=== PATIENT | female | born 1990 | race Two or more races ===

== ENCOUNTER 2018-11-05 21:20 | Emergency (ER) | payer SELFPAY ==
[~2018-11-05] VITALS: Ht 157.5 cm; Wt 72.6 kg
[2018-11-05] MEDS ORDERED: IV NORMAL SALINE 1000ML BAG 1,000 ML IV ONE (22:30)
[2018-11-05] MEDS ORDERED: ONDANSETRON PF 4 MG/2 ML VIAL. IV ONE (22:30)
--- NOTE | 2018-11-05 23:29 | PHYS DOC ---
Past Medical History Past Medical History: No Pertinent History Past Surgical History: No Surgical History Alcohol Use: None Drug Use: Marijuana Adult General Chief Complaint Chief Complaint: SUICDAL IDEATION HPI HPI 28-year-old female presents to ER with complaints of nausea and vomiting and reports she is probably as she hasn't had a period since August. She reports she has had N/V intermittently, decreased urination, and intermittent SANTANA. She denies fever, diarrhea, vaginal bleeding/discharge, or abd pain. She reports LMP 09/22/18. She reports this preg. would make her with her children ages 9 and 11 08/28. She reports she took tylenol for her SANTANA- denies vision changes, dizziness, tinnitus, or photosensitivity. During initial exam patient is tearful and stated in the past couple of weeks due to increased anxiety related to her situation and being from her she has had suicidal ideations and thoughts of taking a "handful of pills". Patient is currently denying active plan stating she would not carry through with this plan however with further discussion she is agr eeable with PAT evaluation while in the ER. Pt denies previous SI/attempts. She denies alcohol intake. She reports she smoked marijuana 2 days ago- denies other illicit drugs. Review of Systems Review of Systems Constitutional: Denies fever or chills [] Eyes: Denies change in visual acuity, redness, or eye pain [] HENT: Denies nasal congestion or sore throat [] Respiratory: Denies cough or shortness of breath [] Cardiovascular: No additional information not addressed in HPI [] GI: Denies abdominal pain, bloody stools or diarrhea. Reports intermittent N/V : Denies dysuria or hematuria. Denies vaginal bleeding/discharge/pelvis pain Musculoskeletal: Denies back pain or joint pain [] Integument: Denies rash or skin lesions [] Neurologic: Denies focal weakness or sensory changes. Reports intermittent SANTANA- denies dizziness Endocrine: Denies polyuria or polydipsia [] Psych: Reports increased anxiety/stress- SI without active plan and denies she would carry thru with attempts All other systems were reviewed and found to be within normal limits, except as documented in this note. Current Medications Current Medications Current Medications Medications (Trade) Dose Ordered Sig/Marcia Start Time Stop Time Status Last Admin Dose Admin Ondansetron HCl (Zofran) 4 mg 1X ONCE 11/05/18 22:30 11/05/18 22:31 DC 11/05/18 23:32 4 MG Potassium Chloride (Klor-Con) 40 meq 1X ONCE 11/06/18 00:30 11/06/18 00:33 DC 11/06/18 00:45 40 MEQ Sodium Chloride 1,000 ml @ 1,000 mls/hr 1X ONCE 11/05/18 22:30 11/05/18 23:29 DC 11/05/18 23:30 1,000 MLS/HR Allergies Allergies Allergies Coded Allergies Type Severity Reaction Last Updated Verified No Known Drug Allergies 11/05/18 No Physical Exam Physical Exam Constitutional: Well developed, well nourished, no acute distress, non-toxic appearance. [] HENT: Normocephalic, atraumatic, mucous membranes pink/dry, no oral exudates, nose normal. [] Eyes: PERRLA, no nystagmus, conjunctiva normal, no discharge. [] Neck: Normal range of motion, no tenderness, supple, no stridor. [] Cardiovascular: Heart rate regular rhythm, no murmur [] Lungs & Thorax: Bilateral breath sounds clear to auscultation [] Abdomen: Bowel sounds normal, soft- no distention/rigidity, no tenderness Skin: Warm, dry, no erythema, no rash. [] Back: No tenderness, no CVA tenderness. [] Extremities: No tenderness, no cyanosis, no clubbing, ROM intact, no edema. [] Neurologic: Alert and oriented X 3, normal motor function, normal sensory function, no focal deficits noted. [] Psychologic: Affect normal, judgement normal, tearful during exam- no agitation/restlessness. Cooperative during exam. No uncontrollable behavior Current Patient Data Vital Signs Lab Values Laboratory Tests Test 11/05/18 21:48 11/05/18 23:59 POC Urine HCG, Qualitative Hcg positive (Negative) White Blood Count 12.5 x10^3/uL (4.0-11.0) H Red Blood Count 4.54 x10^6/uL (3.50-5.40) Hemoglobin 13.2 g/dL (12.0-15.5) Hematocrit 40.1 % (36.0-47.0) Mean Corpuscular Volume 88 fL (79-100) Mean Corpuscular Hemoglobin 29 pg (25-35) Mean Corpuscular Hemoglobin Concent 33 g/dL (31-37) Red Cell Distribution Width 14.4 % (11.5-14.5) Platelet Count 178 x10^3/uL (140-400) Neutrophils (%) (Auto) 74 % (31-73) H Lymphocytes (%) (Auto) 18 % (24-48) L Monocytes (%) (Auto) 7 % (0-9) Eosinophils (%) (Auto) 0 % (0-3) Basophils (%) (Auto) 0 % (0-3) Neutrophils # (Auto) 9.3 x10^3uL (1.8-7.7) H Lymphocytes # (Auto) 2.3 x10^3/uL (1.0-4.8) Monocytes # (Auto) 0.9 x10^3/uL (0.0-1.1) Eosinophils # (Auto) 0.0 x10^3/uL (0.0-0.7) Basophils # (Auto) 0.0 x10^3/uL (0.0-0.2) Maternal Serum HCG Beta Subunit 72321 mIU/mL (0-5) H Sodium Level 141 mmol/L (136-145) Potassium Level 3.2 mmol/L (3.5-5.1) L Chloride Level 102 mmol/L (98-107) Carbon Dioxide Level 25 mmol/L (21-32) Anion Gap 14 (6-14) Blood Urea Nitrogen 13 mg/dL (7-20) Creatinine 0.6 mg/dL (0.6-1.0) Estimated GFR (Cockcroft-Gault) 119.9 BUN/Creatinine Ratio 22 (6-20) H Glucose Level 80 mg/dL (70-99) Calcium Level 8.9 mg/dL (8.5-10.1) Total Bilirubin 0.6 mg/dL (0.2-1.0) Aspartate Amino Transferase (AST) 26 U/L (15-37) Alanine Aminotransferase (ALT) 36 U/L (14-59) Alkaline Phosphatase 56 U/L (46-116) Total Protein 8.0 g/dL (6.4-8.2) Albumin 3.5 g/dL (3.4-5.0) Albumin/Globulin Ratio 0.8 (1.0-1.7) L Lipase 148 U/L (73-393) Laboratory Tests 11/05/18 23:59 Laboratory Tests 11/05/18 23:59 EKG EKG [] Radiology/Procedures Radiology/Procedures [] Course & Med Decision Making Course & Med Decision Making Pertinent Labs reviewed. (See chart for details) 2225: Spoke with Jeff stephens/[facility] team and he will come to assess pt. 1245: On reevaluation following IV fluids/txs received and PAT evaluation patient is non-tearful and reports she is feeling better after discussion with [facility] team staff. Test results were discussed with patient with potassium at 3.2 so 40 mEq potassium is being provided while in the ER. Pt was +preg. with HCG quant [id number]. Discussed need for [employer] f/u. Indepth conversation was had with pt regarding /her living situation and if she had increased anxiety/SI that she should seek immediate help or return to ER. Pt reports she is feeling better after this ER visit and talking with Jeff as he provided her with resources. Discussed plans for home discharge as patient is feeling better. Pt is denying any suicidal ideations stating she does plan to follow-up with resources provided as well as [facility]. She again stated she could never carry thru with SI/attempt for her children's well being. Advised patient on signs and symptoms to return to ER for. Education provided on s&s to return to ER for and pt is comfortable with home d/c plan. Will provide community clinic/physician resource sheet with d/c paperwork. Nick Disclaimer Nick Disclaimer This electronic medical record was generated, in whole or in part, using a voice recognition dictation system. Departure Departure Impression: Primary Impression: Additional Impressions: Anxiety during Suicidal ideation Nausea and vomiting during Hypokalemia Disposition: 01 HOME, SELF-CARE Condition: STABLE Referrals: NO PCP (PCP) Patient Instructions: ABCs of , Anxiety and Panic Attacks, Hypokalemia, Nausea and Vomiting, Suicidal Feelings, How to Help Yourself Additional Instructions: Increase fluid intake and eat well balanced meals. As discussed follow-up with the resources for [facility] and counselors to discuss your anxiety and situation. Return to the Emergency Department or seek immediate help with any thoughts of harming yourself or with any concerns. Problem Qualifiers MARTIN RODRIGUEZ APRN Nov 05, 2018 23:29
[2018-11-06 00:07] LABS: BASO % 0 % (0-3); EOS % 0 % (0-3); HEMATOCRIT 40.1 % (36.0-47.0); HEMOGLOBIN 13.2 g/dL (12.0-15.5); LYMPH # 2.3 x10^3/uL (1.0-4.8); LYMPH % 18 % (24-48); MEAN CORPUSCULAR HEMOGLOBIN 29 pg (25-35); MEAN CORPUSCULAR HGB CONC 33 g/dL (31-37); MEAN CORPUSCULAR VOLUME 88 fL (79-100); MONO # 0.9 x10^3/uL (0.0-1.1); MONO % 7 % (0-9); NEUT # 9.3 x10^3uL (1.8-7.7); NEUT % 74 % (31-73); PLATELET COUNT 178 x10^3/uL (140-400); RED BLOOD COUNT 4.54 x10^6/uL (3.50-5.40); RED CELL DISTRIBUTION WIDTH 14.4 % (11.5-14.5); WHITE BLOOD COUNT 12.5 x10^3/uL (4.0-11.0)
[2018-11-06 00:18] LABS: CALCIUM 8.9 mg/dL (8.5-10.1); CREATININE 0.6 mg/dL (0.6-1.0); GFR 119.9; POTASSIUM 3.2 mmol/L (3.5-5.1)
[2018-11-06 00:22] LABS: ALBUMIN 3.5 g/dL (3.4-5.0); ALBUMIN/GLOBULIN RATIO 0.8 (1.0-1.7); TOTAL BILIRUBIN 0.6 mg/dL (0.2-1.0)
[2018-11-06] MEDS ORDERED: POTASSIUM CHLORIDE 20 MEQ TABLET.ER. PO ONE (00:30)
[2018-11-06 01:17] VITALS: BP 100/61
== END 2018-11-06 01:15 | disposition home or self-care (01) ==
LOC: ER 21:20 → EDBD 21:20 → ER 11-06 01:15
DX: O99.341 Other mental disorders complicating pregnancy, first trimester (principal); F41.9 Anxiety disorder, unspecified; O99.281 Endocrine, nutritional and metabolic diseases complicating pregnancy, first trimester; O21.8 Other vomiting complicating pregnancy; R45.851 Suicidal ideations; Z3A.00 Weeks of gestation of pregnancy not specified
CPT/HCPCS: 36415; 80053; 81025; 83690; 84702; 85025; 96361; 96374; 99284; J2405; J7030